=== PATIENT | male | born 1965 | race African-American/Black ===

== ENCOUNTER 2019-04-15 14:10 | Emergency (ER) | payer MEDICARE ==
[~2019-04-15] VITALS: Ht 167.6 cm; Wt 77.1 kg
[2019-04-15 14:40] VITALS: BP 144/100
--- NOTE | 2019-04-15 14:40 | NUR ---
ED Nurse Note: Patient walked in to ed for c/o generalised body pain with back pain. requesting muscle relaxer and pain injection.
[2019-04-15] MEDS ORDERED: Ketorolac 30mg Inj IM ONE (14:45)
[2019-04-15] MEDS ORDERED: Methocarbamol 750mg tab ORAL ONE (14:45)
[2019-04-15] MEDS ORDERED: LIDODERM700 M1 TOPIC (15:04)
[2019-04-15] MEDS ORDERED: IBUPROFEN600 MG ORAL (15:04)
[2019-04-15 15:12] VITALS: BP 148/98
--- NOTE | 2019-04-15 15:12 | NUR ---
ER DISCHARGE NOTE: Patient is cleared to be discharged per ERMD, pt is aox4, on room air, with stable vital signs. pt was given dc and prescription instructions, pt was able to verbalize understanding, pt id band removed without complications. pt is able to ambulate with steady gait. pt took all belongings.
--- NOTE | 2019-04-15 16:52 | Emergency Room Report ---
History of Present Illness General Chief Complaint: Back Pain-No Injury Source: Patient Present Illness HPI 53-year-old male presents ED for evaluation. Complaining of back pain and chest pain starting yesterday. States symptoms started after he sneezed and felt pain all over. Pain is sharp, 8 out of 10, radiating to the back. Notes pain radiating down his legs. Denies shortness of breath. States that he took meds at home without relief. Is requesting pain shot. No other aggravating relieving factors. Denies any other associated symptoms Allergies: Coded Allergies: No Known Allergies (Unverified , 04/15/19) Patient History Past Medical History: none Past Surgical History: none Pertinent Family History: none Social History: Denies: smoking, alcohol use, drug use Immunizations: UTD Reviewed Nursing Documentation: PMH: Agreed; PSxH: Agreed Nursing Documentation-PMH Past Medical History: No Stated History Review of Systems All Other Systems: negative except mentioned in HPI Physical Exam Vital Signs Date Time Temp Pulse Resp B/P (MAP) Pulse Ox O2 Delivery O2 Flow Rate FiO2 04/15/19 14:40 97.9 70 16 152/100 (117) 99 Room Air Sp02 EP Interpretation: reviewed, normal General Appearance: no apparent distress, alert, GCS 15, non-toxic Head: normocephalic, atraumatic Eyes: bilateral eye normal inspection, bilateral eye PERRL ENT: hearing grossly normal, normal pharynx, no angioedema, normal voice Neck: full range of motion, supple/symm/no masses Respiratory: lungs clear, normal breath sounds, speaking full sentences, other - Reproducible chest wall pain Cardiovascular #1: regular rate, rhythm, no edema Cardiovascular #2: 2+ carotid (R), 2+ carotid (L), 2+ radial (R), 2+ radial (L) , 2+ dorsalis pedis (R), 2+ dorsalis pedis (L) Gastrointestinal: normal bowel sounds, non tender, soft, non-distended, no guarding, no rebound Rectal: deferred Genitourinary: normal inspection, no CVA tenderness Musculoskeletal: normal range of motion, gait/station normal, tender - Paraspinal lumbar tenderness Neurologic: alert, motor strength/tone normal, oriented x3, sensory intact, responsive, speech normal Psychiatric: judgement/insight normal, memory normal, mood/affect normal, no suicidal/homicidal ideation Reflexes: 3+ bicep (R), 3+ bicep (L), 3+ tricep (R), 3+ tricep (L), 3+ knee (R) , 3+ knee (L) Skin: no rash Lymphatic: no adenopathy Medical Decision Making Diagnostic Impression: Primary Impression: Back pain Qualified Codes: M54.5 - Low back pain; G89.29 - Other chronic pain Additional Impression: Opioid dependence Qualified Codes: F11.29 - Opioid dependence with unspecified opioid-induced disorder ER Course Hospital Course 53-year-old male presents complaining of chest and back pain Differential diagnoses include: Muscle strain, ACS, arrhythmia, sciatica Clinical course Patient placed on stretcher. After initial history exam reveals middle-age male in no acute distress. There is reproducible pain to the anterior ribs and to the lower back. Negative straight leg raise. 5 out of 5 strength lower extremities Stable vitals. EKG normal sinus rhythm no acute ischemic changes interpreted by me patient was requesting pain shot. I reviewed CURES and patient is receiving multiple narcotic and muscle relaxer prescriptions on a monthly basis. given robaxin, toradol, Lidoderm patch here. Patient observed walking in ED without discomfort. Safe for discharge with close outpatient follow-up I will provide referrals Diagnosis - back pain, opioid dependence Stable and discharged to home with prescription for Lidoderm, motrin. Followup with PMD. Return to ED if symptoms recur or worsen Last Vital Signs Date Time Temp Pulse Resp B/P (MAP) Pulse Ox O2 Delivery O2 Flow Rate FiO2 04/15/19 15:12 98.0 90 15 148/98 99 Room Air Status: improved Disposition: HOME, SELF-CARE Condition: Stable Scripts Lidocaine Patch* (Lidoderm Patch*) 1 Each Adh..patch 1 PATCH TOPIC DAILY, #7 PATCH 0 Refills Patch(es) may remain in place for up to 12 hours in any 24-hour period. Prov: Po Lara MD 04/15/19 Ibuprofen* (MOTRIN*) 600 Mg Tablet 600 MG ORAL Q8H PRN for For Pain, #30 TAB 0 Refills Prov: Po Lara MD 04/15/19 Referrals: [facility] Patient Instructions: Back Pain, Adult Po Lara MD Apr 15, 2019 16:52
== END 2019-04-15 15:12 | disposition home or self-care (01) ==
LOC: EMR 14:55
DX: M54.5 Low back pain (principal); G89.29 Other chronic pain; F11.29 Opioid dependence with unspecified opioid-induced disorder
CPT/HCPCS: 93005; 96372; 99283; J1885